=== PATIENT | female | born 1985 | race Caucasian/White ===

== ENCOUNTER 2021-03-07 08:19 | Outpatient (CLI) | payer BC ==
[2021-03-07 19:53] LABS: SARS-CoV-2 PCR by NAA Not Detected (NotDetected)
== END 2021-03-07 08:20 | disposition home or self-care (01) ==
LOC: CSHLAB 08:19
PROVIDERS: ATTEND Student in an Organized Health Care Education/Training Program
DX: Z20.822 Contact with and (suspected) exposure to COVID-19 (principal)
CPT/HCPCS: U0003; U0005

== ENCOUNTER 2021-03-10 05:31 | Inpatient (IN) | payer BC ==
[2021-03-10] MEDS ORDERED: Ondansetron PF 4 MG/2 ML Vial IVP PRN ×3 (05:42→11:12)
[2021-03-10] MEDS ORDERED: hydrALAZINE 20 MG/ML VIAL SLOW IVP PRN ×2 (05:42→11:12)
[2021-03-10] MEDS ORDERED: ceFAZolin 2 GM/Dextrose 50 ML 2 GM in Premix Bag 1 BAG IVPB SCH (05:42)
[2021-03-10] MEDS ORDERED: Promethazine HCl 25 MG/ML VIAL IM PRN ×3 (05:42→11:12)
[2021-03-10] MEDS ORDERED: Famotidine/PF 20 mg/2ml Vial SLOW IVP PRN (05:42)
[2021-03-10] MEDS ORDERED: Bicitra 30 ML UDCUP PO PRN (05:42)
[2021-03-10 06:08] VITALS: BMI 30.2
[2021-03-10] MEDS: Lactated Ringer's 1,000 ML IV SCH ×2 (06:17→07:34)
[2021-03-10 06:35] LABS: Hemoglobin 11.5 g/dL (12.0-15.5); Mean Corpuscular HGB CONC 32.8 g/dL (32.0-36.0); Mean Corpuscular Volume 88.6 fl (81.6-98.3); Mean Platelet Volume 10.5 fl (7.4-10.4); Platelet Count 216 10x3/uL (150-450); Red Blood Cell (RBC) Count 3.96 10x6/uL (3.90-5.03); White Blood Cell (WBC) Count 10.4 10x3/uL (3.5-10.5)
[2021-03-10] MEDS ORDERED: Famotidine/PF 20 mg/2ml Vial ONE (07:06)
[2021-03-10] MEDS ORDERED: ePHEDrine Sulfate 50 MG/10 ML VIAL ONE (07:17)
[2021-03-10] MEDS ORDERED: Morphine PF 10 MG/10 ML VIAL ONE (07:17)
[2021-03-10] MEDS ORDERED: Ketorolac Tromethamine 30 MG/ML VIAL ONE (07:23)
[2021-03-10] MEDS ORDERED: Phenylephrine 10 MG/ML VIAL ONE (07:23)
[2021-03-10] MEDS ORDERED: Ondansetron PF 4 MG/2 ML Vial ONE ×2 (07:23→08:28)
[2021-03-10] MEDS ORDERED: Dexamethasone 4 mg/ml Vial ONE (07:23)
[2021-03-10] MEDS ORDERED: Oxytocin 10 UNITS/ML VIAL ONE (07:23)
[2021-03-10] MEDS ORDERED: Ketorolac Tromethamine 30 MG/ML VIAL IVP PRN (08:52)
[2021-03-10] MEDS ORDERED: Fentanyl 100 MCG/2 ML VIAL SLOW IVP PRN (08:52)
[2021-03-10] MEDS ORDERED: Ondansetron HCl/PF 4 MG/2 ML Vial IVP PRN (08:52)
[2021-03-10] MEDS ORDERED: Meperidine HCl/PF 25 MG/ML VIAL SLOW IVP PRN (08:52)
[2021-03-10] MEDS ORDERED: Naloxone HCl 0.4 mg/ml Vial IV PRN (08:52)
[2021-03-10] MEDS ORDERED: Hydrocerin (Eucerin) Cream 120 gm Jar TOP PRN (08:52)
[2021-03-10] MEDS ORDERED: diphenhydrAMINE 50 MG/ML VIAL IVP PRN (08:52)
[2021-03-10] MEDS ORDERED: Promethazine HCl 25 MG SUPP PR PRN (08:52)
[2021-03-10] MEDS ORDERED: Naloxone HCl 0.4 mg/ml Vial IVP PRN ×2 (08:52)
[2021-03-10] MEDS ORDERED: Communication Order-Pharmacy FS SCH (09:00)
[2021-03-10] MEDS ORDERED: Ketorolac Tromethamine 30 MG/ML VIAL IVP SCH (09:00)
[2021-03-10] MEDS ORDERED: Meperidine HCl/PF 25 MG/ML VIAL ONE (09:23)
[2021-03-10 09:58] LABS: Hep B Surf Ag Non-Reactive S/CO (NonReactive); Syphilis Antibody Nonreactive (Nonreactive); Syphilis Antibody Index 0.05 S/CO (<1.00 Non-Reactive)
[2021-03-10 10:25] LABS: HBSAg Index 0.15 S/CO (0-0.99)
[2021-03-10 10:29] LABS: ALT (SGPT) 14 U/L (8-55); AST (SGOT) 18 U/L (5-34); Albumin 3.3 g/dL (3.5-5.0); Alkaline Phosphatase 98 U/L (40-110); Anion Gap 11 mmol/L (10-20); BUN (Urea Nitrogen) 12 mg/dL (7.0-18.7); Bilirubin, Total 0.1 mg/dL (0.2-1.2); Calc. Creatinine Clearance 151 mL/min (70-130); Carbon Dioxide 23 mmol/L (22-29); Chloride 105 mmol/L (98-107); Glucose 103 mg/dL (70-105); Potassium 4.1 mmol/L (3.5-5.1); Protein, Total 6.3 g/dL (6.0-8.3); Sodium 135 mmol/L (136-145)
[2021-03-10 11:01] LABS: Creatinine, Urine 28.61 mg/dL (47-110)
[2021-03-10] MEDS ORDERED: Lanolin Ointment 7 GM TUBE TOP PRN (11:12)
[2021-03-10] MEDS ORDERED: Bisacodyl 10 MG SUPP PR PRN (11:12)
[2021-03-10] MEDS ORDERED: diphenhydrAMINE 25 MG CAP PO PRN (11:12)
[2021-03-10] MEDS ORDERED: Boostrix 0.5 ML (Tdap) VIAL IM ONE (11:12)
[2021-03-10] MEDS ORDERED: Prenatal Vitamin 1 TAB PO SCH (11:30)
[2021-03-10] MEDS ORDERED: Acetaminophen 500 MG TAB PO SCH ×2 (12:30→16:00)
[2021-03-10] MEDS: Acetaminophen 500 MG TAB PO SCH (17:54)
[2021-03-10] MEDS: Docusate 100 MG CAP PO SCH (20:48)
[2021-03-10] MEDS ORDERED: traMADol HCl 50 MG TAB PO PRN ×2 (21:00)
[2021-03-10] MEDS ORDERED: Zolpidem Tartrate 5 MG TAB PO PRN (21:00)
[2021-03-11] MEDS: Acetaminophen 500 MG TAB PO SCH ×4 (00:44→18:21)
[2021-03-11] MEDS: Ferrous Sulfate 325 MG TAB PO SCH ×2 (06:30→08:21)
[2021-03-11 06:37] LABS: Hemoglobin 10.1 g/dL (12.0-15.5); Mean Corpuscular HGB CONC 32.1 g/dL (32.0-36.0); Mean Corpuscular Hemoglobin 28.9 pg (27.0-33.0); Mean Platelet Volume 10.5 fl (7.4-10.4); Platelet Count 188 10x3/uL (150-450); RBC Distribution Width 13.2 % (11.5-14.5); White Blood Cell (WBC) Count 12.7 10x3/uL (3.5-10.5)
[2021-03-11] MEDS: Enoxaparin Sodium 40 MG/0.4 ML SYRINGE SC SCH (09:12)
[2021-03-11] MEDS: Prenatal Vitamin 1 TAB PO SCH (09:12)
[2021-03-11] MEDS: Docusate 100 MG CAP PO SCH ×2 (09:12→20:30)
[2021-03-11] MEDS ORDERED: HYDROcodone/Acetaminophen 5/325 mg Tablet PO PRN (15:09)
[2021-03-11] MEDS: HYDROcodone/Acetaminophen 5/325 mg Tablet PO PRN ×2 (16:37→20:30)
[2021-03-11] MEDS: Simethicone Chewable 80 MG TAB PO PRN (20:30)
[2021-03-12] MEDS: Ferrous Sulfate 325 MG TAB PO SCH ×2 (01:01→07:15)
[2021-03-12] MEDS: Acetaminophen 500 MG TAB PO SCH ×2 (01:02→05:30)
[2021-03-12] MEDS: Simethicone Chewable 80 MG TAB PO PRN ×2 (01:07→09:07)
[2021-03-12] MEDS: HYDROcodone/Acetaminophen 5/325 mg Tablet PO PRN (01:07)
[2021-03-12 07:41] VITALS: BP 122/56; TEMP 97.6
[2021-03-12] MEDS: Prenatal Vitamin 1 TAB PO SCH (09:06)
[2021-03-12] MEDS: Docusate 100 MG CAP PO SCH (09:07)
[2021-03-12] MEDS: Enoxaparin Sodium 40 MG/0.4 ML SYRINGE SC SCH (09:07)
== END 2021-03-12 12:15 | disposition home or self-care (01) | DRG 783 ==
LOC: CSHLD 05:31 → CSHPED 11:17
PROVIDERS: ADMIT Student in an Organized Health Care Education/Training Program; ATTEND Student in an Organized Health Care Education/Training Program
PROC: 10D00Z1 Extraction of Products of Conception, Low, Open Approach (ICD-10-PCS; principal; 2021-03-10)
PROC: 0UT70ZZ Resection of Bilateral Fallopian Tubes, Open Approach (ICD-10-PCS; 2021-03-10)
DX: O34.211 Maternal care for low transverse scar from previous cesarean delivery (principal); O34.33 Maternal care for cervical incompetence, third trimester; O99.12 Other diseases of the blood and blood-forming organs and certain disorders involving the immune mechanism complicating childbirth; D68.59 Other primary thrombophilia; Z3A.39 39 weeks gestation of pregnancy; Z37.0 Single live birth; Z88.6 Allergy status to analgesic agent; Z88.1 Allergy status to other antibiotic agents; Z88.8 Allergy status to other drugs, medicaments and biological substances; Z30.2 Encounter for sterilization
CPT/HCPCS: 36415; 51702; 80053; 82570; 84156; 85027; 86780; 86850; 86900; 86901; 87340; 88302; J0690; J1100; J1650; J1885; J2175; J2274; J2370; J2405; J2590; J7120; S0028; U0003; U0005